=== PATIENT | male | born 1965 | race Caucasian/White ===

== ENCOUNTER 2017-10-20 12:12 | Emergency (ER) | payer SELFPAY ==
[~2017-10-20] VITALS: Ht 185.4 cm; Wt 117.9 kg
[~2017-10-20 12:12] MED LIST: ALBU90OI INH; CEPH500 PO; CIPRO500 MG PO; CODGUAEL PO; CRUTCH4 XX; CYCL10 PO; DOXY100 PO; HYDACE5 PO; HYDGUAL120 PO; HYDR1TAB94 PO; IBUP800 PO; LORA10ER PO; MELO7.5 PO; OMEP20ER PO; Percocet 5-3251 EACH PO; RXALBOI INH; SULTRIDS PO; VENL150ER PO; ZOLP10 PO
[2017-10-20] MEDS ORDERED: ERYT1OIN BOTHEYES (12:42)
== END 2017-10-20 12:53 | disposition home or self-care (01) ==
LOC: ER 12:12
DX: H10.9 Unspecified conjunctivitis (principal); Z88.0 Allergy status to penicillin; Z88.5 Allergy status to narcotic agent; Z88.1 Allergy status to other antibiotic agents; F17.200 Nicotine dependence, unspecified, uncomplicated
CPT/HCPCS: 99282

== ENCOUNTER 2025-04-05 09:17 | Emergency (ER) | payer OTHER ==
[~2025-04-05] VITALS: Ht 182.9 cm; Wt 118.8 kg
[~2025-04-05 09:17] MED LIST changes: +ERYT1OIN BOTHEYES
[2025-04-05 10:05] LABS: BASOPHILS ABSOLUTE AUTO 0.08 K/mm3 (0.00-0.23); BASOPHILS PERCENT AUTO 1 % (0-2); EOSINOPHILS ABSOLUTE AUTO 0.44 K/mm3 (0.00-0.68); EOSINOPHILS PERCENT AUTO 4 % (0-6); Hematocrit 47.0 % (37.0-53.0); Hemoglobin 16.2 g/dL (13.5-17.5); IMMATURE GRAN ABSOLUTE AUTO 0.06 K/mm3 (0.00-0.10); IMMATURE GRAN PERCENT AUTO 1 % (0-1); LYMPHOCYTES ABSOLUTE AUTO 1.83 K/mm3 (0.84-5.20); LYMPHOCYTES PERCENT AUTO 16 % (21-46); MONOCYTES ABSOLUTE AUTO 0.84 K/mm3 (0.16-1.47); MONOCYTES PERCENT AUTO 8 % (4-13); Mean Corpuscular HGB Conc 34.5 g/dL (31.5-36.5); Mean Corpuscular Volume 89 fL (80-100); NEUTROPHILS ABSOLUTE AUTO 8.00 K/mm3 (1.96-9.15); NEUTROPHILS PERCENT AUTO 71 % (41-73); NRBC ABSOLUTE 0.00 K/mm3 (0.00-0.02); NRBC Auto 0.0 /100 WBC (0.0-0.2); Platelet Count 224 K/mm3 (150-400); RDW Coefficient Variation 13.2 % (11.7-14.2); RDW Standard Deviation 42.7 fL (35.1-46.3)
[2025-04-05 10:24] LABS: Alanine Aminotransfer (ALT/SGP 38.0 U/L (12-78); Albumin, Blood 3.6 g/dL (3.4-5.0); Albumin/Globulin Ratio 0.9 (0.8-1.8); Anion Gap 10.0 mmol/L (3-11); Aspartate Aminotrans (AST/SGOT 21.0 U/L (12-37); Bilirubin, Total 0.7 mg/dL (0.1-1.0); Blood Urea Nitrogen 20.0 mg/dL (8-24); CO2, Blood 23.0 mmol/L (21-32); Calcium, Blood 8.7 mg/dL (8.5-10.1); Chloride, Blood 109.0 mmol/L (98-108); Creatinine, Blood 1.03 mg/dL (0.60-1.20); Globulin, Blood 4.0 g/dL (2.2-4.0); Glucose, Blood 126.0 mg/dL (70-99); Potassium, Blood 3.7 mmol/L (3.5-5.5); Sodium, Blood 138.0 mmol/L (136-145); Total Protein, Blood 7.6 g/dL (6.4-8.2)
[2025-04-05] MEDS ORDERED: ELIQUIS5 M9 PO ×2 (12:28)
[2025-04-05 13:01] VITALS: BP 178/107
== END 2025-04-05 13:15 | disposition home or self-care (01) ==
LOC: ER 09:17
PROVIDERS: Student in an Organized Health Care Education/Training Program
DX: I82.412 Acute embolism and thrombosis of left femoral vein (principal); F17.210 Nicotine dependence, cigarettes, uncomplicated; Z88.0 Allergy status to penicillin; Z88.5 Allergy status to narcotic agent; K21.9 Gastro-esophageal reflux disease without esophagitis; Z88.1 Allergy status to other antibiotic agents
CPT/HCPCS: 71046; 80053; 83690; 83880; 84484; 85025; 93005; 93010; 93971; 99284-25; A9270

== ENCOUNTER 2025-04-27 10:03 | Inpatient (IN) | payer OTHER ==
[~2025-04-27] VITALS: Ht 182.9 cm; Wt 112.4 kg
[~2025-04-27 10:03] MED LIST changes: +ELIQUIS5 M9 PO
[2025-04-27 10:53] LABS: BASOPHILS ABSOLUTE AUTO 0.08 K/mm3 (0.00-0.23); BASOPHILS PERCENT AUTO 1 % (0-2); EOSINOPHILS ABSOLUTE AUTO 0.26 K/mm3 (0.00-0.68); EOSINOPHILS PERCENT AUTO 3 % (0-6); Hematocrit 46.6 % (37.0-53.0); Hemoglobin 15.4 g/dL (13.5-17.5); IMMATURE GRAN ABSOLUTE AUTO 0.04 K/mm3 (0.00-0.10); IMMATURE GRAN PERCENT AUTO 1 % (0-1); LYMPHOCYTES ABSOLUTE AUTO 2.26 K/mm3 (0.84-5.20); LYMPHOCYTES PERCENT AUTO 30 % (21-46); MONOCYTES ABSOLUTE AUTO 0.65 K/mm3 (0.16-1.47); MONOCYTES PERCENT AUTO 9 % (4-13); Mean Corpuscular HGB Conc 33.0 g/dL (31.5-36.5); Mean Corpuscular Volume 90 fL (80-100); NEUTROPHILS ABSOLUTE AUTO 4.27 K/mm3 (1.96-9.15); NEUTROPHILS PERCENT AUTO 57 % (41-73); NRBC ABSOLUTE 0.00 K/mm3 (0.00-0.02); NRBC Auto 0.0 /100 WBC (0.0-0.2); Platelet Count 285 K/mm3 (150-400); RDW Coefficient Variation 13.2 % (11.7-14.2); RDW Standard Deviation 43.7 fL (35.1-46.3)
[2025-04-27 11:22] LABS: Anion Gap 6.0 mmol/L (3-11); Blood Urea Nitrogen 20.0 mg/dL (8-24); CO2, Blood 27.0 mmol/L (21-32); Calcium, Blood 9.1 mg/dL (8.5-10.1); Chloride, Blood 108.0 mmol/L (98-108); Creatinine, Blood 1.18 mg/dL (0.60-1.20); Glucose, Blood 90.0 mg/dL (70-99); Potassium, Blood 4.2 mmol/L (3.5-5.5); Sodium, Blood 137.0 mmol/L (136-145)
[2025-04-27 11:49] LABS: Prothrombin Time Results 11.0 Sec (9.7-11.5)
[2025-04-27] MEDS ORDERED: Heparin Sodium,Porcine/0.5 NS 500 ML IV SCH (12:05)
[2025-04-27] MEDS ORDERED: Dose Adjust by Pharmacy XX STA ×2 (12:07→16:31)
[2025-04-27] MEDS ORDERED: Prochlorperazine Edisylate 10 mg Vial IV PRN (12:45)
[2025-04-27] MEDS ORDERED: NS 1,000 ML IV SCH (12:45)
[2025-04-27] MEDS ORDERED: FLU VACC TS2025-26(6MOS UP)/PF 45 MCG/0.5 ML SYRINGE IM SCH (12:50)
[2025-04-27] MEDS ORDERED: Heparin Sodium 1000 Units/ML 10ML MDV ONE (14:59)
[2025-04-27] MEDS ORDERED: NS 2,000 ML IV ONE (14:59)
[2025-04-27] MEDS ORDERED: NS 0 ML IV ONE (14:59)
[2025-04-27] MEDS ORDERED: Midazolam HCl 1MG / ML 2ML Vial ONE (15:30)
[2025-04-27] MEDS ORDERED: FentaNYL Citrate 50 MCG/ML 2 ML Injection ONE (15:31)
[2025-04-27 16:25] VITALS: BP 150/97
--- NOTE | 2025-04-27 17:11 | NUR ---
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 patient vital signs stable. tele sinus rhythm 66. spo2 >90% on room air. patient has a right femoral access site that is soft, nontender, no hematoma, and slight blood on the dressing upon arrival. patient is alert and oriented x4. neuro is intact. perrla. patient is able to make needs known and uses call light appropriately. patient denies pain, chest pain/pressure or shortness of breath. patient lung sounds clear throughout. patient skin is clean dry and inact. patient bowel tones active in all four quadrants. patient has strong pedal and femoral pulses. see shift assessment for further detials. this rn gave patient ivc filter card and is in patient wallet. patient daughter, gray, in to see patient and there at the time the card was placed in wallet. patient heparin started at 12u/kg/hr and patient educated on heparin drip. plan of care is up to date.
[2025-04-27 19:33] VITALS: BP 164/97
[2025-04-27 23:33] VITALS: BP 152/100
[2025-04-28] MEDS ORDERED: Dose Adjust by Pharmacy XX STA ×2 (00:14→07:42)
[2025-04-28] MEDS ORDERED: FentaNYL Citrate 50 MCG/ML 2 ML Injection IV PRN (00:50)
--- NOTE | 2025-04-28 01:55 | NUR ---
PT REPORTED SOME CP THAT WAS SHARP. HE RATED IT A 4/10. PT HAD PRN TYLENOL, GAVE DOSE. PT THEN STATING HIS PAIN WENT UP TO A 6/10 WITH RADIATION TO HIS NECK AND BACK. EKG COMPLETED. CALLED AND NOTIFIED OF THE ABOVE INFORMATION. PT S/P IVC FILTER PLACEMENT ON 04/27. ASKED PROVIDER IF IMAGINING WAS NESSECARY TO CHECK PLACEMENT. NO NEW ORDERS FOR IMAGINING PLACED AT THIS TIME. PROVIDER PLACED ORDER FOR IV PAIN MEDICATION. PER PROVIDER CALL IR IF PAIN PERSEISTS OR WORSENS OR CONCERNS OF IVC FILTER DISPLACEMENT. IV PAIN MEDICATION GIVEN TO PT. PT REPORTS ITS MORE OF A TIGHTNESS NOW AND ONLY IN HIS CHEST, PER PT PAIN IS SLOWLY SUBSIDING. PT NOW RESTING IN BED. WILL MONITOR PT.
[2025-04-28 03:56] VITALS: BP 156/94
--- NOTE | 2025-04-28 05:49 | NUR ---
SHIFT SUMMARY PT A&O X4, CALM, COOPERATIVE TO CARE. HR IN THE 80'S, SR. PT HAD AN EPISODE T/O THE NIGHT OF CP THAT RADIATED TO BACK/NECK, MD WAS NOTIFIED, PT MEDICATED. SEE PREVIOUS NOTE FOR DETAILS OF EVENT. PT SAID PAIN HAS RESOLVED AT THIS TIME. HIS BP HAS BEEN ELEVATED IN THE 150'S-160'S. PT WAS PLACED ON 2L VIA NC T/O NIGHT. PT DESATING TO THE 70'S-80'S AND HAVING PERIODS OF APNEA. PER PT HE DOES NOT HAVE AN OFFICIAL DX OF FANY BUT PEOPLE HAVE WITNESSED HIS EPISODES OF APNEA WELL. PT HAS SOME SOB WITH EXERTION. PT S/P ANGIO WITH IVC FILTER PLACEMENT ON 04/27. RIGHT GROIN SITE WITH TEGADERM IN PLACE. SMALL AMOUNT OF BLOOD ON TEGADERM, UNCHANGED. SLIGHT BRUISING PRESENT. NO OOZING OR HEMATOMA PRESENT. PT RESTING IN BED AT THIS TIME. CALL LIGHT IN REACH. WILL MONITOR PT AND REPORT TO ONCOMING RN.
[2025-04-28 07:04] LABS: BASOPHILS ABSOLUTE AUTO 0.05 K/mm3 (0.00-0.23); BASOPHILS PERCENT AUTO 1 % (0-2); EOSINOPHILS ABSOLUTE AUTO 0.31 K/mm3 (0.00-0.68); EOSINOPHILS PERCENT AUTO 5 % (0-6); Hematocrit 42.6 % (37.0-53.0); Hemoglobin 14.1 g/dL (13.5-17.5); IMMATURE GRAN ABSOLUTE AUTO 0.05 K/mm3 (0.00-0.10); IMMATURE GRAN PERCENT AUTO 1 % (0-1); LYMPHOCYTES ABSOLUTE AUTO 2.23 K/mm3 (0.84-5.20); LYMPHOCYTES PERCENT AUTO 32 % (21-46); MONOCYTES ABSOLUTE AUTO 0.49 K/mm3 (0.16-1.47); MONOCYTES PERCENT AUTO 7 % (4-13); Mean Corpuscular HGB Conc 33.1 g/dL (31.5-36.5); Mean Corpuscular Volume 91 fL (80-100); NEUTROPHILS ABSOLUTE AUTO 3.78 K/mm3 (1.96-9.15); NEUTROPHILS PERCENT AUTO 55 % (41-73); NRBC ABSOLUTE 0.00 K/mm3 (0.00-0.02); NRBC Auto 0.0 /100 WBC (0.0-0.2); Platelet Count 224 K/mm3 (150-400); RDW Coefficient Variation 13.3 % (11.7-14.2); RDW Standard Deviation 44.4 fL (35.1-46.3)
[2025-04-28 07:28] LABS: Alanine Aminotransfer (ALT/SGP 37.0 U/L (12-78); Albumin, Blood 3.2 g/dL (3.4-5.0); Albumin/Globulin Ratio 1.1 (0.8-1.8); Anion Gap 9.0 mmol/L (3-11); Aspartate Aminotrans (AST/SGOT 21.0 U/L (12-37); Bilirubin, Total 0.2 mg/dL (0.1-1.0); Blood Urea Nitrogen 14.0 mg/dL (8-24); CO2, Blood 23.0 mmol/L (21-32); Calcium, Blood 8.7 mg/dL (8.5-10.1); Chloride, Blood 107.0 mmol/L (98-108); Creatinine, Blood 0.98 mg/dL (0.60-1.20); Globulin, Blood 2.9 g/dL (2.2-4.0); Glucose, Blood 111.0 mg/dL (70-99); Potassium, Blood 3.8 mmol/L (3.5-5.5); Sodium, Blood 135.0 mmol/L (136-145); Total Protein, Blood 6.1 g/dL (6.4-8.2)
[2025-04-28 07:29] LABS: pH Blood Venous 7.45 (7.34-7.37)
[2025-04-28 07:37] VITALS: BP 161/99
[2025-04-28 09:24] VITALS: BP 155/97
[2025-04-28 11:16] VITALS: BP 157/106
[2025-04-28] MEDS ORDERED: Nicoderm Cq1 EAC1 TOP ×2 (11:50)
[2025-04-28] MEDS ORDERED: Prinivil10 MG PO ×2 (11:50)
--- NOTE | 2025-04-28 12:27 | NUR ---
DISCHARGE SUMMARY PT A&Ox4, CALLS AND COMMUNICATES NEEDS APPROPRIATELY. IND IN ROOM. BP ELEVATED WITH SBP 150-160's, PHYSICIAN NOTIFIED - ORDERS PLACED. SINU S80's, DENIES CP/PRESSURE. SpO2> 92% RA, DENIES SOB. R GROIN SITE DRESSING WITH MILD OOZING UPON ASSUMPTION OF CARE, DRESSING CHANGED, NO OOZING PRESENT. MILD BRUISING AND TENDERNESS UPON PALPITATION, SITE SOFT. DISCHARGE INSTRUCTIONS PROVIDED. ALL PT BELONGINGS GATHERED, PT TAKEN OUT VIA WHEELCHAIR BY CLINICAL STAFF MEMEBER AT APPROXIMATELY 1215.
== END 2025-04-28 12:20 | disposition home or self-care (01) | DRG 175 ==
LOC: ER 10:03 → PCU 11:49 → ERHOLD 11:49 → EDBEDREQ 12:47 → PCU 16:06
PROVIDERS: Student in an Organized Health Care Education/Training Program; ADMIT Internal Medicine
DX: I26.09 Other pulmonary embolism with acute cor pulmonale (principal); I82.502 Chronic embolism and thrombosis of unspecified deep veins of left lower extremity; K21.9 Gastro-esophageal reflux disease without esophagitis; I10 Essential (primary) hypertension; E66.01 Morbid (severe) obesity due to excess calories; F17.210 Nicotine dependence, cigarettes, uncomplicated; Z68.34 Body mass index [BMI] 34.0-34.9, adult; Z88.0 Allergy status to penicillin; Z88.1 Allergy status to other antibiotic agents; Z88.5 Allergy status to narcotic agent; Z79.01 Long term (current) use of anticoagulants; Z79.899 Other long term (current) drug therapy; Z98.890 Other specified postprocedural states
CPT/HCPCS: 36415; 76937; 80048; 80053; 82803; 83880; 84484; 85025; 85520; 85610; 85730; 93306; 93970; 99152; 99285-25; A9270; C1769; C1880; J1644; J2250; J3010; J7030; J7050; Q9967

== ENCOUNTER 2025-06-25 15:00 | Emergency (ER) | payer OTHER ==
[~2025-06-25] VITALS: Ht 185.4 cm; Wt 114.8 kg
[~2025-06-25 15:00] MED LIST changes: +Nicoderm Cq1 EAC1 TOP; +Prinivil10 MG PO
[2025-06-25 16:06] LABS: BASOPHILS ABSOLUTE AUTO 0.08 K/mm3 (0.00-0.23); BASOPHILS PERCENT AUTO 1 % (0-2); EOSINOPHILS ABSOLUTE AUTO 0.15 K/mm3 (0.00-0.68); EOSINOPHILS PERCENT AUTO 2 % (0-6); Hematocrit 47.9 % (37.0-53.0); Hemoglobin 16.2 g/dL (13.5-17.5); IMMATURE GRAN ABSOLUTE AUTO 0.04 K/mm3 (0.00-0.10); IMMATURE GRAN PERCENT AUTO 1 % (0-1); LYMPHOCYTES ABSOLUTE AUTO 2.25 K/mm3 (0.84-5.20); LYMPHOCYTES PERCENT AUTO 27 % (21-46); MONOCYTES ABSOLUTE AUTO 0.69 K/mm3 (0.16-1.47); MONOCYTES PERCENT AUTO 8 % (4-13); Mean Corpuscular HGB Conc 33.8 g/dL (31.5-36.5); Mean Corpuscular Volume 90 fL (80-100); NEUTROPHILS ABSOLUTE AUTO 5.13 K/mm3 (1.96-9.15); NEUTROPHILS PERCENT AUTO 61 % (41-73); NRBC ABSOLUTE 0.00 K/mm3 (0.00-0.02); NRBC Auto 0.0 /100 WBC (0.0-0.2); Platelet Count 257 K/mm3 (150-400); RDW Coefficient Variation 13.9 % (11.7-14.2); RDW Standard Deviation 45.8 fL (35.1-46.3)
[2025-06-25 16:28] LABS: Alanine Aminotransfer (ALT/SGP 33.0 U/L (12-78); Albumin, Blood 4.0 g/dL (3.4-5.0); Albumin/Globulin Ratio 1.1 (0.8-1.8); Anion Gap 9.0 mmol/L (3-11); Aspartate Aminotrans (AST/SGOT 15.0 U/L (12-37); Bilirubin, Total 0.4 mg/dL (0.1-1.0); Blood Urea Nitrogen 20.0 mg/dL (8-24); CO2, Blood 23.0 mmol/L (21-32); Calcium, Blood 9.6 mg/dL (8.5-10.1); Chloride, Blood 109.0 mmol/L (98-108); Creatinine, Blood 0.97 mg/dL (0.60-1.20); Globulin, Blood 3.6 g/dL (2.2-4.0); Glucose, Blood 99.0 mg/dL (70-99); Potassium, Blood 3.8 mmol/L (3.5-5.5); Sodium, Blood 137.0 mmol/L (136-145); Total Protein, Blood 7.6 g/dL (6.4-8.2)
[2025-06-25] MEDS ORDERED: INDO50 PO (18:05)
[2025-06-25 18:23] VITALS: BP 153/110
== END 2025-06-25 18:24 | disposition home or self-care (01) ==
LOC: ER 15:00
PROVIDERS: Student in an Organized Health Care Education/Training Program
DX: M10.9 Gout, unspecified (principal); F17.210 Nicotine dependence, cigarettes, uncomplicated; Z86.718 Personal history of other venous thrombosis and embolism; Z88.0 Allergy status to penicillin; Z88.5 Allergy status to narcotic agent; Z79.01 Long term (current) use of anticoagulants; Z79.899 Other long term (current) drug therapy
CPT/HCPCS: 80053; 85025; 93926; 93971; 99284-25; A9270